=== PATIENT | female | born 1960 | race Caucasian/White ===

== ENCOUNTER → 2017-06-09 | Outpatient (CLI) | payer BC ==
--- NOTE | 2017-06-10 09:15 | MM ---
Reason for exam: screening (asymptomatic). Last mammogram was performed 1 year ago. History: Patient is postmenopausal. Family history of breast cancer in aunt. Physical Findings: A clinical breast exam by your physician is recommended on an annual basis and results should be correlated with mammographic findings. MG Screening Mammo w CAD Bilateral CC and MLO view(s) were taken. Prior study comparison: June 03, 2016, bilateral MG screening mammo w CAD. There are scattered fibroglandular densities. No significant changes when compared with prior studies. ASSESSMENT: Benign, BI-RAD 2 RECOMMENDATION: Routine screening mammogram of both breasts in 1 year.
== END ==
LOC: RADMAMWWP 12:39
PROVIDERS: ATTEND Family Medicine
DX: Z12.31 Encounter for screening mammogram for malignant neoplasm of breast (principal)

== ENCOUNTER → 2019-07-26 | Outpatient (CLI) | payer BC ==
--- NOTE | 2019-07-26 15:32 | BD ---
EXAMINATION TYPE: Axial Bone Density DATE OF EXAM: 07/26/2019 COMPARISON: NONE CLINICAL HISTORY: Z 78.0 Height: 5 FT 1 IN Weight: 149 FRAX RISK QUESTIONS: Family History (Parent hip fracture): YES RISK FACTORS HISTORY OF: Active: YES Postmenopausal woman: AGE 45 MEDICATIONS: Additional Medications: NONE Additional History: EXAM MEASUREMENTS: Bone mineral densitometry was performed using the [employer] System. Bone mineral density as measured about the Lumbar spine is: ----- L1-L4(G/cm2): 0.838 T Score Values are as follows: ----- L2: -3.0 ----- L3: -2.8 ----- L4: -3.3 ----- L1-L4: -2.8 BASELINE Bone mineral density about the R hip (g/cm2): 0.918 Bone mineral density about the L hip (g/cm2): 0.797 T Score values are as follows: -----R Neck: -0.9 -----L Neck: -1.7 -----R Total: -1.1 -----L Total: -1.7 BASELINE IMPRESSION: Osteoporosis (T Score less than -2.5) with regards to the lumbar spine. There is increased fracture risk and therapy is usually indicated based on age. Re-Screen 1-2 years. NOTE: T-SCORE=SD OF THE YOUNG ADULT MEAN.
--- NOTE | 2019-07-27 11:28 | MM ---
Reason for exam: screening (asymptomatic). Last mammogram was performed 2 years and 2 months ago. History: Patient is postmenopausal. Family history of breast cancer in aunt. Physical Findings: A clinical breast exam by your physician is recommended on an annual basis and results should be correlated with mammographic findings. MG Screening Mammo w CAD Bilateral CC, MLO, and XCCL view(s) were taken. Prior study comparison: June 09, 2017, bilateral MG screening mammo w CAD. June 10, 2016, right breast MG work up mamm w CAD RT. The breast tissue is heterogeneously dense. This may lower the sensitivity of mammography. Neodensity 3.8cm from nipple right breast outer upper quadrant. ASSESSMENT: Incomplete: need additional imaging evaluation, BI-RAD 0 RECOMMENDATION: Special view mammogram of the right breast. If lesion persists on supplemental views, image directed ultrasound is recommended. [facility] will attempt to contact patient to return for supplemental views and ultrasound if indicated.
== END ==
LOC: RADMAMWWP 12:36
PROVIDERS: ATTEND Family Medicine
DX: Z12.31 Encounter for screening mammogram for malignant neoplasm of breast (principal); M81.0 Age-related osteoporosis without current pathological fracture; Z78.0 Asymptomatic menopausal state
CPT/HCPCS: 77067; 77080

== ENCOUNTER → 2019-08-08 | Outpatient (CLI) | payer BC ==
--- NOTE | 2019-08-08 11:29 | MM ---
Reason for exam: additional evaluation requested from abnormal screening. Last mammogram was performed less than 1 month ago. History: Patient is postmenopausal and has history of other cancer at age 54. Family history of breast cancer in maternal aunt at age 50. Physical Findings: Nurse did not find any significant physical abnormalities on exam. MG Work Up Mamm w CAD RT Spot compression CC, spot compression MLO, and LM view(s) were taken of the right breast. Prior study comparison: July 26, 2019, bilateral MG screening mammo w CAD. June 09, 2017, bilateral MG screening mammo w CAD. Area of concern does not go completely away on additional views. These results were verbally communicated with the patient and result sheet given to the patient on 08/08/19. ASSESSMENT: Incomplete: need additional imaging evaluation, BI-RAD 0 RECOMMENDATION: Ultrasound of the right breast.
--- NOTE | 2019-08-08 11:30 | USB ---
Reason for exam: additional evaluation requested from abnormal screening. History: Patient is postmenopausal and has history of other cancer at age 54. Family history of breast cancer in maternal aunt at age 50. US Breast Workup Limited RT Right limited breast ultrasound including focal area of concern, retroareolar and axilla demonstrates no cystic or solid lesion greater than 0.50cm. These results were verbally communicated with the patient and result sheet given to the patient on 08/08/19. ASSESSMENT: Probably benign, BI-RAD 3 RECOMMENDATION: Follow-up diagnostic mammogram of the right breast in 6 months.
== END | disposition home or self-care (01) ==
LOC: RADMAMWWP 10:08
PROVIDERS: ATTEND Family Medicine
DX: R92.8 Other abnormal and inconclusive findings on diagnostic imaging of breast (principal)
CPT/HCPCS: 77065

== ENCOUNTER → 2020-12-03 | Outpatient (CLI) | payer BC ==
--- NOTE | 2020-12-04 13:16 | MM ---
Reason for exam: screening (asymptomatic). Last mammogram was performed 1 year and 4 months ago. History: Patient is postmenopausal and has history of other cancer at age 54. Family history of breast cancer in maternal aunt at age 50. Physical Findings: A clinical breast exam by your physician is recommended on an annual basis and results should be correlated with mammographic findings. MG Screening Mammo w CAD Bilateral CC and MLO view(s) were taken. Prior study comparison: August 08, 2019, right breast MG work up mamm w CAD RT. July 26, 2019, bilateral MG screening mammo w CAD. June 09, 2017, bilateral MG screening mammo w CAD. June 03, 2016, bilateral MG screening mammo w CAD. The breast tissue is heterogeneously dense. This may lower the sensitivity of mammography. Finding: There are typically benign vascular calcifications in the right breast. There are benign round calcifications bilaterally. There is a chronic nodularity bilaterally. There is no discrete abnormality. ASSESSMENT: Benign, BI-RAD 2 RECOMMENDATION: Routine screening mammogram of both breasts in 1 year.
== END | disposition home or self-care (01) ==
LOC: RADMAMWWP 09:53
PROVIDERS: ATTEND Family Medicine
DX: Z12.31 Encounter for screening mammogram for malignant neoplasm of breast (principal)
CPT/HCPCS: 77067

== ENCOUNTER → 2021-04-10 | Outpatient (CLI) | payer BC ==
--- NOTE | 2021-04-10 13:57 | USB ---
Reason for exam: clinical finding. History: Patient is postmenopausal and has history of other cancer at age 54. Family history of breast cancer in maternal aunt at age 50. Physical Findings: Nurse did not find any significant physical abnormalities on exam. US Breast RT Right complete breast ultrasound includes all four quadrants, the retroareolar region and axilla. Finding demonstrates a 0.5 x 0.6 x 0.4cm oval, cystic lesion at 9 o'clock, a 0.4 x 0.7 x 0.3cm oval, hypoechoic lesion at 9 o'clock, likely complex cyst or fibrocystic change, duct ectasia with debris at the posterior nipple, probably benign and a 2.0 x 1.8 x 0.6cm lymph node at the axilla. These results were verbally communicated with the patient and result sheet given to the patient on 04/10/21. ASSESSMENT: Suspicious, BI-RAD 4 RECOMMENDATION: Surgical consultation of the right breast. (for bloody nipple discharge) Called [facility]'s office with mammographic findings and has scheduled an appointment for the patient for 05/02/21 at 10:[address] Manuel. PRELIMINARY REPORT CALLED AND FAXED TO DR. MANUEL ON 04/10/21. Ultrasound of the right breast in 6 months.
== END | disposition home or self-care (01) ==
LOC: RADUSWWP 08:00
PROVIDERS: ATTEND Family Medicine
DX: N60.01 Solitary cyst of right breast (principal); N60.41 Mammary duct ectasia of right breast; Z78.0 Asymptomatic menopausal state; Z80.3 Family history of malignant neoplasm of breast

== ENCOUNTER → 2021-05-02 | Outpatient (CLI) | payer BC ==
[2021-05-02 10:23] VITALS: BP 109/57; PULSE 54; RESP 16; TEMP 98.2
--- NOTE | 2021-05-02 11:09 | P.GSHP ---
History of Present Illness H&P Date: 05/02/21 Chief Complaint: bloody nipple discharge Belinda is a 61 year old white female seen in consultation for Dr. Shay with a complaint of right breast bloody nipple discharge following a mammogram in November. The discharge stopped however she still does have some sticky muc us-like/clear discharge from that area. The bilateral mammogram in November 2020 was benign BIRADS 2. Secondary to the discharge an ultrasound was done of the right breast on . The ultrasound revealed a 0.5 x 0.6 cm cystic lesion at 9:00, a 0.4 x 0.7 cm hypoechoic lesion at 9:00 likely complex cyst, duct ectasia with to be at the posterior nipple, and a 2 x 1.8 cm lymph node in the axilla. The findings were suspicious BIRADS 4 and surgical consultation secondary to the bloody nipple discharge was recommended. The patient does not feel any lumps masses or nodules of concern in either breast. She has not had any recent history of infection of the breast. The patient approximately a year ago was hit with a baseball in the left breast and developed some ecchymosis and some discomfort which has largely resolved. She is not complaining of any pain in her breasts. She's never had anything like this in the past. She has no left nipple discharge. Caffeine: 2 cups coffee/day nicotine: none chocolate: none Family History: maternal aunt: breast cancer niece: breast cancer bilateral paternal aunt: breast cancer mother: leukemia Hormonal History: menarche: 11 , breast fed: yes, age at first : 18 menopause: 45 BCP: none hormones: none Surgical history: Rotator cuff surgery Medical history: Negative Social history: Nicotine: Negative; stopped 15 years ago; 2/PPD for 30 years Alcohol: Occasional Drugs: Negative - Constitutional Constitutional: Denies chills, Denies fever - EENT Eyes: denies blurred vision, denies pain Ears: deny: decreased hearing, tinnitus Ears, nose, mouth and throat: Denies headache, Denies sore throat - Breasts Breasts: bilateral: as per HPI - Cardiovascular Cardiovascular: Denies chest pain, Denies shortness of breath - Respiratory Respiratory: Denies cough, Denies 7 - Gastrointestinal Comment: esophogeal spasm - Genitourinary (Female) Genitourinary: Denies dysuria, Denies hematuria - Menstruation Menstruation: Reports postmenopausal - Musculoskeletal Comment: arthritis Musculoskeletal: Reports as per HPI - Integumentary Integumentary: Denies pruritus, Denies rash - Neurological Neurological: Denies numbness, Denies weakness - Psychiatric Psychiatric: Denies anxiety, Denies depression - Endocrine Endocrine: Denies fatigue, Denies weight change - Hematologic/Lymphatic Comment: none - Allergic/Immunologic Allergic/Immunologic: Reports seasonal allergies Past Medical History History of Any Multi-Drug Resistant Organisms: None Reported Smoking Status: Former smoker Medications and Allergies Allergies Allergy/AdvReac Type Severity Reaction Status Date / Time No Known Allergies Allergy Verified 08/08/19 10:42 Surgical - Exam Vital Signs Temp Pulse Resp BP Pulse Ox 98.2 F 54 L 16 109/57 98 05/02/21 10:11 05/02/21 10:11 05/02/21 10:11 05/02/21 10:11 05/02/21 10:11 BMI 28.3 - General no distress - Eyes normal ocular movement - ENT no hearing loss, no congestion - Neck no masses, trachea midline - Respiratory normal expansion, normal respiratory effort - Cardiovascular Rhythm: regular Heart Sounds: normal: S1, S2 - Abdomen Abdomen: soft - Integumentary normal turgor - Neurologic normal coordination - Musculoskeletal normal gait, normal posture - Psychiatric oriented to time, oriented to person, oriented to place, speech is normal, memory intact breast exam: BRA: 38B inspection: Bilateral grade 2 ptosis Palpation: Right breast: Multiple positional exam fibrocystic changes, with squeezing quite diligently there is small amount of shiny fluid right at the nipple central orifice not enough to do a guaiac test on Right axilla: No adenopathy of concern Left breast: Multiple positional exam fibrocystic changes no dominant masses or nodules of concern Left axilla: No adenopathy of concern Results Mammogram and ultrasound results reviewed Assessment and Plan Assessment: Impression: 1. History of bloody nipple discharge following a mammogram on the right breast, this has resolved patient has symptoms residual clear discharge minimal this cannot be well elicited on today's exam 2. Ultrasound of the right breast no specific lesions of concern question of some duct ectasia with debris at the posterior nipple 3. Bilateral mammogram 37636 benign BIRADS 2 4. family history of breast cancer Plan: 1. I've discussed with Belinda several options. The first option would be close surveillance with repeat ultrasound in 3 months. The problem is that I cannot elicit a specific duct that the discharge comes from, she is not having any bloody discharge at this time. 2. Second option would be a ductogram/after discussion she has declined this 3. Operative exploration of the duct which at this time would be non-directed as there is no specific duct that we can determine this is coming from At this time patient is going to have a repeat ultrasound in 3 months with physician exam at that time. She notes anything of concern prior she will call us sooner. CC: Dr. Conklin
== END ==
LOC: WWCWWP 09:52
PROVIDERS: ATTEND Surgery
DX: N64.52 Nipple discharge (principal); Z80.3 Family history of malignant neoplasm of breast; Z87.891 Personal history of nicotine dependence

== ENCOUNTER → 2021-06-27 | Outpatient (CLI) | payer BC ==
--- NOTE | 2021-07-01 14:26 | USB ---
Reason for exam: clinical finding. History: Patient is postmenopausal and has history of other cancer at age 54. Family history of breast cancer in maternal aunt at age 50 and breast cancer in paternal aunt. Indicated problem(s): non-bloody discharge in the right breast. Pain in the left breast. Physical Findings: Nurse Summary: Patient complains of spontaneous clear nipple discharge right breast x 7 months, left breast pain x 1 month (nurse mj). US Breast BILAT Right complete breast ultrasound includes all four quadrants, the retroareolar region and axilla. Finding demonstrates a 0.4 x 0.3 x 0.2cm cystic lesion at 9 o'clock and a 0.4 x 0.3 x 0.3cm hypoechoic, taller than wide lesion at 9 o'clock. Biopsy recommended. Left complete breast ultrasound includes all four quadrants, the retroareolar region and axilla. Finding demonstrates no cystic or solid lesion seen. These results were verbally communicated with the patient and result sheet given to the patient on 06/27/21. ASSESSMENT: Suspicious, BI-RAD 4 RECOMMENDATION: Ultrasound core biopsy of the right breast. (9 o'clock) Called office with mammographic findings and has scheduled an appointment for the patient for 07/04/21 at 12:[address] Manuel. PRELIMINARY REPORT CALLED AND FAXED TO DR. MANUEL ON 07/01/21.
== END | disposition home or self-care (01) ==
LOC: RADUSWWP 14:03
PROVIDERS: ATTEND Surgery
DX: N64.4 Mastodynia (principal)

== ENCOUNTER → 2021-07-04 | Outpatient (CLI) | payer BC ==
[2021-07-04 12:36] VITALS: BP 106/62; PULSE 60; RESP 16; TEMP 98.1
--- NOTE | 2021-07-04 13:07 | P.PN ---
Subjective Progress Note Date: 07/04/21 Principal diagnosis: abnormal ultrasound right breast Belinda is a 61 year old white female seen in consultation for Dr. Shay with a complaint of right breast bloody nipple discharge following a mammogram in November. The discharge stopped however she still does have some sticky mucus- like/clear discharge from that area. The bilateral mammogram in November 2020 was benign BIRADS 2. Secondary to the discharge an ultrasound was done of the right breast on . The ultrasound revealed a 0.5 x 0.6 cm cystic lesion at 9:00, a 0.4 x 0.7 cm hypoechoic lesion at 9:00 likely complex cyst, duct ectasia with to be at the posterior nipple, and a 2 x 1.8 cm lymph node in the axilla. The findings were suspicious BIRADS 4 and surgical consultation secondary to the bloody nipple discharge was recommended. The patient does not feel any lumps masses or nodules of concern in either breast. She has not had any recent history of infection of the breast. The patient approximately a year ago was hit with a baseball in the left breast and developed some ecchymosis and some discomfort which has largely resolved. She is not complaining of any pain in her breasts. She's never had anything like this in the past. She has no left nipple discharge. 07-04-21 Belinda had a right breast ultrasound done on 06-27-21. This showed a taller than wide lesion at 9 oclock. An ultrasund guided biopsy was recommended. The patient does not feel any lumps masses or nodules of concern in either breast. Additionally she states that the nipple discharge has decreased and is not bloody. Caffeine: 2 cups coffee/day nicotine: none chocolate: none Family History: maternal aunt: breast cancer niece: breast cancer bilateral paternal aunt: breast cancer mother: leukemia Hormonal History: menarche: 11 , breast fed: yes, age at first : 18 menopause: 45 BCP: none hormones: none Surgical history: Rotator cuff surgery Medical history: Negative Social history: Nicotine: Negative; stopped 15 years ago; 2/PPD for 30 years Alcohol: Occasional Drugs: Negative - Constitutional Constitutional: Denies chills, Denies fever - EENT Eyes: denies blurred vision, denies pain Ears: deny: decreased hearing, tinnitus Ears, nose, mouth and throat: Denies headache, Denies sore throat - Breasts Breasts: bilateral: as per HPI - Cardiovascular Cardiovascular: Denies chest pain, Denies shortness of breath - Respiratory Respiratory: Denies cough - Gastrointestinal Comment: esophogeal spasm - Genitourinary (Female) Genitourinary: Denies dysuria, Denies hematuria - Menstruation Menstruation: Reports postmenopausal - Musculoskeletal Comment: arthritis Musculoskeletal: Reports as per HPI - Integumentary Integumentary: Denies pruritus, Denies rash - Neurological Neurological: Denies numbness, Denies weakness - Psychiatric Psychiatric: Denies anxiety, Denies depression - Endocrine Endocrine: Denies fatigue, Denies weight change - Hematologic/Lymphatic Comment: none - Allergic/Immunologic Allergic/Immunologic: Reports seasonal allergies Objective - Vital Signs Vital signs: Vital Signs Temp 98.1 F 07/04/21 12:32 Pulse 60 07/04/21 12:32 Resp 16 07/04/21 12:32 BP 106/62 07/04/21 12:32 Pulse Ox 96 07/04/21 12:32 Intake & Output 07/03/21 07/04/21 07/04/21 18:59 06:59 18:59 Weight 68.039 kg - Constitutional General appearance: Present: average body habitus - EENT Eyes: Present: EOMI ENT: Present: hearing grossly normal - Neck Neck: Present: normal ROM - Respiratory Respiratory: bilateral: CTA - Cardiovascular Heart sounds: normal: S1, S2 - Integumentary Integumentary: Present: normal turgor - Musculoskeletal Musculoskeletal: Present: gait normal - Psychiatric Psychiatric: Present: A&O x's 3, appropriate affect, intact judgment & insight - Additional findings Additional findings: Breast Exam: BRA: 38B inspection: Bilateral grade 2 ptosis Palpation: Right breast: Multi-positional exam no dominant masses or nodules of concern, fibrocystic changes, no nipple discharge of concern Right axilla: No adenopathy of concern Left breast: Positional exam no dominant masses or nodules of concern, fibrocystic changes, no nipple discharge of concern Left axilla: No adenopathy of concern Assessment and Plan Assessment: Impression: 1. abnormal right breast ultrasound 2. no nipple discharge at this time Plan: 1. Ultrasound-guided core biopsy right breast 2. Follow-up after ultrasound-guided core biopsy Cc: Dr. Brandie Shay
== END | disposition home or self-care (01) ==
LOC: WWCWWP 12:18
PROVIDERS: ATTEND Surgery
DX: Z53.9 Procedure and treatment not carried out, unspecified reason (principal)

== ENCOUNTER → 2021-07-16 | Day surgery (SDC) | payer BC ==
[2021-07-16 09:55] VITALS: BP 137/78; PULSE 62; RESP 16; TEMP 98.1
--- NOTE | 2021-07-16 11:38 | USB ---
EXAMINATION TYPE: US biopsy breast VAD RT, MG diagnostic mammo RT wo CAD DATE OF EXAM: 07/16/2021 CLINICAL HISTORY: R92.8 Abnormal Mammogram. TECHNIQUE: Ultrasound guided core biopsy of right 9:00 breast. COMPARISON: 06/27/2021 FINDINGS: The procedure of ultrasound guided core biopsy was explained to the patient. Benefits, alternatives, and risks were discussed. An informed consent was then obtained. The patient was placed in supine positioning for imaging and for the procedure. The overlying skin was prepped and draped in usual sterile fashion. Lidocaine buffered with bicarbonate was used as anesthetic into the skin and subcutaneous tissue up to area of concern in the right 9:00 breast. Under ultrasound guidance, a 12-gauge vacuum assisted biopsy gun device was used to obtain 2 core samples. Following this, a biopsy clip was left in lesion. Postprocedural mammogram demonstrates appropriate clip deployment. The patient tolerated the procedure well without any immediate complication. The patient was kept in the radiology department for short stay after the procedure and then discharged home in stable condition. IMPRESSION: Successful, uncomplicated ultrasound guided core biopsy of area of concern in the right 9:00 breast, full pathology results to follow. Pathology Results: Benign RIGHT BREAST, NINE O'CLOCK POSITION, CORE BIOPSY: Benign breast tissue with fragmented fibrocystic change/benign cyst, focal chronic inflammation and focal microcalcification. Recommendation Follow up ultrasound of the right breast in 6 months. THUAN
== END ==
LOC: RADUSWWP 09:26
PROVIDERS: ATTEND Surgery
DX: N60.81 Other benign mammary dysplasias of right breast (principal)
CPT/HCPCS: 19083; 88305; 77065; A4648; J2001

== ENCOUNTER → 2021-07-31 | Outpatient (CLI) | payer BC ==
[2021-07-31 14:39] VITALS: BP 131/84; PULSE 60; RESP 16; TEMP 97.9
--- NOTE | 2021-07-31 15:21 | P.PN ---
Subjective Progress Note Date: 07/31/21 Principal diagnosis: nipple discharge/fibrocystic changes Belinda is a 61-year-old white female who underwent [place] [id number]. Pathology revealed benign breast tissue with fragment of fibrocystic/benign cyst changes. She tolerated the procedure without difficulty although it was painful. The patient was seen secondary to the fact that she has some sticky brown nipple discharge. The discharge has decreased but is still present. The ultra sound was reviewed in detail with Dr. Rabago following the core biopsy. It is felt that the area of concern was adequately sampled and does just represent fibrocystic tissue. Secondary to the fact that the nipple discharge has decreased and may have occurred secondary to trauma after the mammogram his recommendation is that we would sit tight repeat a mammogram and ultrasound of that breast in 3 months and follow conservatively. Objective - Vital Signs Vital signs: Vital Signs Temp 97.9 F 07/31/21 14:35 Pulse 60 07/31/21 14:35 Resp 16 07/31/21 14:35 BP 131/84 07/31/21 14:35 Pulse Ox 98 07/31/21 14:35 Intake & Output 07/30/21 07/31/21 07/31/21 18:59 06:59 18:59 Weight 68.039 kg - Additional findings Additional findings: Breast Exam: Right breast: Mild ecchymosis at biopsy site I was unable to express nipple discharge on her last visit. On today's examination likewise I did not express nipple discharge however the patient was able to manipulate and get a very small speck of fluid from one duct in the right breast. This was too small to even do a Hemoccult time. Assessment and Plan Assessment: Impression: Fibrocystic breast changes Intermittent right nipple discharge decreasing in intensity and frequency Plan: Patient is given a Hemocult card and she is going to take this home if she develops to discharge again she will collect it and bring the card back to us Repeat right breast mammogram and ultrasound in 3 months At this time I would not do a duct exploration as I cannot elicit discharge We have discussed attempting a ductogram and at this time the patient has declin ed repeat mammogram and ultrasound in 3 months CC: Dr. Shay
== END ==
LOC: WWCWWP 14:31
PROVIDERS: ATTEND Surgery
DX: N60.11 Diffuse cystic mastopathy of right breast (principal); N64.52 Nipple discharge

== ENCOUNTER → 2021-10-20 | Outpatient (CLI) | payer BC ==
--- NOTE | 2021-10-21 07:24 | MM ---
Reason for exam: follow-up at short interval from prior study. Last mammogram was performed 3 months ago. History: Patient is postmenopausal and has history of other cancer at age 54. Family history of breast cancer in maternal aunt at age 50 and breast cancer in paternal aunt. Benign US biopsy breast VAD RT of the right breast, July 16, 2021. Physical Findings: Nurse did not find any significant physical abnormalities on exam. MG 3D Diag Mammo W/Cad RT CC and MLO view(s) were taken of the right breast. Prior study comparison: July 16, 2021, right breast MG diagnostic mammo RT wo CAD. December 03, 2020, bilateral MG screening mammo w CAD. The breast tissue is heterogeneously dense. This may lower the sensitivity of mammography. Previous mammotome biopsy in the left breast. There is no discrete abnormality. No significant new findings when compared with previous films. These results were verbally communicated with the patient and result sheet given to the patient on 10/20/21. ASSESSMENT: Incomplete: need additional imaging evaluation, BI-RAD 0 RECOMMENDATION: Ultrasound of the right breast.
--- NOTE | 2021-10-21 07:26 | USB ---
Reason for exam: follow-up at short interval from prior study. History: Patient is postmenopausal and has history of other cancer at age 54. Family history of breast cancer in maternal aunt at age 50 and breast cancer in paternal aunt. Benign US biopsy breast VAD RT of the right breast, July 16, 2021. US Breast RT Right complete breast ultrasound includes all four quadrants, the retroareolar region and axilla. Finding demonstrates a 0.4 x 0.6 x 0.2cm oval, cystic lesion at 7 o'clock, a 0.7 x 0.4 x 0.2cm oval, cystic cluster at 9 o'clock and a 1.9 x 1.8 x 1.0cm oval lymph node at the axilla. These results were verbally communicated with the patient and result sheet given to the patient on 10/20/21. ASSESSMENT: Benign, BI-RAD 2 RECOMMENDATION: Return to routine screening mammogram schedule for both breasts. Back on schedule for November 2021. Manage patient on a clinical basis.
== END | disposition home or self-care (01) ==
LOC: RADMAMWWP 14:10
PROVIDERS: ATTEND Surgery
DX: N60.01 Solitary cyst of right breast (principal); R92.2 Inconclusive mammogram; Z78.0 Asymptomatic menopausal state; Z80.3 Family history of malignant neoplasm of breast
CPT/HCPCS: 77061; 77065

== ENCOUNTER → 2021-10-31 | Outpatient (CLI) | payer BC ==
[2021-10-31 14:04] VITALS: BP 122/77; PULSE 63; RESP 18; TEMP 97.7
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
== END ==
LOC: WWCWWP 13:17
PROVIDERS: ATTEND Surgery
DX: N60.12 Diffuse cystic mastopathy of left breast (principal); Z87.891 Personal history of nicotine dependence

== ENCOUNTER → 2022-03-19 | Outpatient (CLI) | payer BC ==
--- NOTE | 2022-03-20 11:50 | MM ---
Reason for exam: screening (asymptomatic). Last mammogram was performed 5 months ago. History: Patient is postmenopausal and has history of other cancer at age 54. Family history of breast cancer in maternal aunt at age 50 and breast cancer in paternal aunt. Benign US biopsy breast VAD RT of the right breast, July 16, 2021. Physical Findings: A clinical breast exam by your physician is recommended on an annual basis and results should be correlated with mammographic findings. MG 3D Screening Mammo W/Cad Bilateral CC and MLO view(s) were taken. Prior study comparison: December 03, 2020, bilateral MG screening mammo w CAD. July 26, 2019, bilateral MG screening mammo w CAD. There are scattered fibroglandular densities. There are benign appearing round, vascular calcifications bilaterally. Previous mammotome biopsy in the right breast. There is no discrete abnormality. ASSESSMENT: Benign, BI-RAD 2 RECOMMENDATION: Routine screening mammogram of both breasts in 1 year.
== END | disposition home or self-care (01) ==
LOC: RADMAMWWP 13:57
PROVIDERS: ATTEND Family Medicine
DX: Z12.31 Encounter for screening mammogram for malignant neoplasm of breast (principal); Z78.0 Asymptomatic menopausal state; Z80.3 Family history of malignant neoplasm of breast
CPT/HCPCS: 77063; 77067

== ENCOUNTER → 2023-03-22 | Outpatient (CLI) | payer BC ==
--- NOTE | 2023-03-23 12:09 | MM ---
Reason for Exam: Screening (asymptomatic). Last mammogram was performed 1 year(s) and 1 month(s) ago. Patient History: Menarche at age 11. First Full-Term at age 18. Postmenopausal. Patient has history of breast feeding. Other cancer, age 54. 07/16/2021, Benign Core Biopsy on the right side. Paternal aunt had breast cancer, age 54. Maternal aunt had breast cancer, age 50. Risk Values: Wendy 5 year model risk: 1.4%. NCI Lifetime model risk: 5.6%. Prior Study Comparison: 07/16/2021 Right Diagnostic Mammogram, [facility]. 10/20/2021 Right Diagnostic Mammogram, [facility]. 03/19/2022 Bilateral Screening Mammogram, [facility]. Tissue Density: There are scattered fibroglandular densities. Findings: Analyzed By CAD. Right breast biopsy clip There is no suspicious group of microcalcifications or new suspicious mass in either breast. Overall Assessment: Benign, BI-RAD 2 Management: Screening Mammogram of both breasts in [address] [facility] will attempt to contact patient to return for supplemental views and ultrasound if indicated. Patient should continue monthly self-breast exams. A clinical breast exam by your physician is recommended on an annual basis. This exam should not preclude additional follow-up of suspicious palpable abnormalities. Note on Wendy scores and lifetime risk: 1. A Wendy score greater than 3% is considered moderate risk. If this is the case, consider specialist referral to assess eligibility for a risk reducing agent. 2. If overall lifetime risk for the development of breast cancer is 20% or higher, the patient may qualify for future screening with alternating mammogram and breast MRI. Electronically signed and approved by: Regis Johnson DO
== END | disposition home or self-care (01) ==
LOC: RADMAMWWP 10:15
PROVIDERS: ATTEND Family Medicine
DX: Z12.31 Encounter for screening mammogram for malignant neoplasm of breast (principal); Z78.0 Asymptomatic menopausal state; Z80.3 Family history of malignant neoplasm of breast
CPT/HCPCS: 77063; 77067

== ENCOUNTER → 2023-04-28 | Outpatient (CLI) | payer BC ==
--- NOTE | 2023-04-28 09:30 | US ---
EXAMINATION TYPE: US abdomen complete DATE OF EXAM: 04/28/2023 COMPARISON: NONE CLINICAL INDICATION: Female, 63 years old with history of R10.13 EPIGASTRIC PAIN; Epigastric pain TECHNIQUE: Multiple sonographic images of the abdomen are obtained. FINDINGS: EXAM MEASUREMENTS: Liver Length: 16.0 cm Gallbladder Wall: 0.2 cm CBD: 0.5 cm Spleen: 8.6 cm Right Kidney: 9.7 x 4.6 x 5.3 cm Left Kidney: 9.1 x 4.4 x 4.8 cm Pancreas: Tail obscured by overlying bowel gas Liver: complex cystic structure = 4.4 x 2.7 x 4.5cm Gallbladder: multiple stones Evidence for sonographic Peterson's sign: no CBD: wnl Spleen: granuloma Right Kidney: cystic area lower pole = 3.1 x 2.9 x 3.0cm Left Kidney: no evidence of hydronephrosis Upper IVC: wnl Abd Aorta: wnl There is a complex anechoic cyst with thin septation measuring up to 4.4 cm. The intrahepatic portion of the IVC and proximal abdominal aorta are within normal limits. Cholelithiasis demonstrated. Per s onographer, negative sonographic Peterson's sign. No pericholecystic fluid or wall thickening. Common b ile duct is unremarkable. The visualized portions of the pancreas are homogenous. The tail is obscur ed by overlying bowel gas. Scattered calcified granulomas within the spleen. Kidneys are symmetric an d free of hydronephrosis. Right renal lower pole 3.1 cm simple cyst. IMPRESSION: 1. No acute process. 2. Cholelithiasis without evidence for acute cholecystitis. 3. Minimally complex anechoic hepatic cyst with thin septation. 4. Splenic calcified granulomas. 5. Right renal simple cyst.
== END | disposition home or self-care (01) ==
LOC: RADUSWWP 08:13
PROVIDERS: ATTEND Family Medicine
DX: K80.20 Calculus of gallbladder without cholecystitis without obstruction (principal); K76.89 Other specified diseases of liver; N28.1 Cyst of kidney, acquired; D73.89 Other diseases of spleen
CPT/HCPCS: 76700

== ENCOUNTER → 2023-09-16 | Outpatient (CLI) | payer BC ==
--- NOTE | 2023-09-16 12:58 | MR ---
EXAMINATION TYPE: MR liver wo/w con DATE OF EXAM: 09/16/2023 12:22 PM CLINICAL INDICATION:Female, 63 years old with history of K76.89 OTHER SPECIFIED DISEASES OF LIVER; PH H, Abdominal pain, abnormal US. COMPARISON: ultrasound abdomen 04/28/2023. TECHNIQUE: Multiplanar multi-sequence imaging was performed without contrast. Post contrast imaging was performed. Post IV contrast subtraction images were also submitted for review. IV Contrast: 7 cc Gadavist FINDINGS: LOWER CHEST: No gross irregularity. ABDOMEN Liver: No evidence for hepatic steatosis or cirrhosis. There is a complex cyst in the liver as seen o n prior ultrasound with multiple thin septations measuring 4.0 x 3.7 cm. There is additionally a smal ler cyst present in the left hepatic lobe measuring 3 mm. No abnormal postcontrast enhancement within these cysts. Gallbladder and Bile ducts: No evidence for ductal dilation, or biliary stricture or evidence of chol edocholithiasis. The gallbladder is within normal limits. Pancreas: No ductal dilation. No evidence for solid mass. Spleen: Normal for size. Adrenal glands: Unremarkable. Kidneys: No evidence for obstructive uropathy. No suspicious renal masses. Minimally complex renal cy st measuring 4.2 x 3.1 x 2.9 cm . No abnormal postcontrast enhancement. Stomach and Bowel: No evidence for bowel wall thickening or evidence for obstruction.. Peritoneum: No evidence of pneumoperitoneum or free fluid. Vasculature: No aortic aneurysm. Musculoskeletal: The osseous structures appear intact. Lymph Nodes: No gross evidence for lymphadenopathy. Abdominal wall: Unremarkable. IMPRESSION: 1. Complicated hepatic cyst septations. No abnormal post contrast enhancement. No evidence for lymph adenopathy. Consider 2. Cholelithiasis. 3. Bosniak type II; right renal cyst.
== END | disposition home or self-care (01) ==
LOC: RADMRIMAIN 11:20
PROVIDERS: ATTEND Internal Medicine Gastroenterology
DX: K76.89 Other specified diseases of liver (principal); K80.20 Calculus of gallbladder without cholecystitis without obstruction; N28.1 Cyst of kidney, acquired
CPT/HCPCS: 74183; A9585

== ENCOUNTER → 2024-04-13 | Outpatient (CLI) | payer MEDICARE, OTHER ==
--- NOTE | 2024-04-18 19:58 | MM ---
Reason for Exam: Screening (asymptomatic). Last screening mammogram was performed 12 month(s) ago. Patient History: Menarche at age 11. First Full-Term at age 18. Postmenopausal. Patient has history of breast feeding. Other cancer, age 54. 07/16/2021, Benign Core Biopsy on the right side. Paternal aunt had breast cancer, age 54. Maternal aunt had breast cancer, age 50. Risk Values: Wendy 5 year model risk: 1.4%. NCI Lifetime model risk: 5.4%. Prior Study Comparison: 10/20/2021 Right Diagnostic Mammogram, [facility]. 03/19/2022 Bilateral Screening Mammogram, [facility]. 03/22/2023 Bilateral MG 3D screening mammo w/cad, [facility]. Tissue Density: There are scattered areas of fibroglandular density. Findings: Analyzed By CAD. Microclip right breast from prior biopsy. There is no suspicious group of microcalcifications or new suspicious mass in either breast. Overall Assessment: Negative, BI-RAD 1 Management: Screening Mammogram of both breasts in 1 year. . Patient should continue monthly self-breast exams. A clinical breast exam by your physician is recommended on an annual basis. This exam should not preclude additional follow-up of suspicious palpable abnormalities. Note on Wendy scores and lifetime risk: 1. A Wendy score greater than 3% is considered moderate risk. If this is the case, consider specialist referral to assess eligibility for a risk reducing agent. 2. If overall lifetime risk for the development of breast cancer is 20% or higher, the patient may qualify for future screening with alternating mammogram and breast MRI. Electronically signed and approved by: Cynthia Rabago M.D. Radiologist
== END | disposition home or self-care (01) ==
LOC: RADMAMWWP 10:01
PROVIDERS: ATTEND Family Medicine
DX: Z12.31 Encounter for screening mammogram for malignant neoplasm of breast (principal); Z78.0 Asymptomatic menopausal state; Z80.3 Family history of malignant neoplasm of breast
CPT/HCPCS: 77063; 77067

== ENCOUNTER → 2025-05-16 | Outpatient (CLI) | payer MEDICARE, OTHER ==
--- NOTE | 2025-05-16 14:37 | MM ---
Reason for Exam: Screening (asymptomatic). Last mammogram was performed 1 year(s) and 1 month(s) ago. Patient History: Menarche at age 11. First Full-Term at age 18. Postmenopausal. Patient has history of breast feeding. Other cancer, age 54. 07/16/2021, Benign Core Biopsy on the right side. Paternal aunt had breast cancer, age 54. Maternal aunt had breast cancer, age 50. Risk Values: Wendy 5 year model risk: 1.4%. NCI Lifetime model risk: 5.2%. Prior Study Comparison: 07/26/2019 Bilateral Screening Mammogram, [facility]. 08/08/2019 Right Diagnostic Mammogram, [facility]. 12/03/2020 Bilateral Screening Mammogram, [facility]. 07/16/2021 Right Diagnostic Mammogram, [facility]. 10/20/2021 Right Diagnostic Mammogram, [facility]. 03/19/2022 Bilateral Screening Mammogram, [facility]. 03/22/2023 Bilateral MG 3D screening mammo w/cad, [facility]. 04/13/2024 Bilateral MG 3D screening mammo w/cad, [facility]. Tissue Density: There are scattered areas of fibroglandular density. Findings: Analyzed By CAD. Right breast biopsy clip. Right breast: There is no suspicious group of microcalcifications or new suspicious mass. Left breast: There is no suspicious group of microcalcifications or new suspicious mass. Overall Assessment: Benign, BI-RAD 2 Management: Screening Mammogram of both breasts in [address] [facility] will attempt to contact patient to return for supplemental views and ultrasound if indicated. Patient should continue monthly self-breast exams. A clinical breast exam by your physician is recommended on an annual basis. This exam should not preclude additional follow-up of suspicious palpable abnormalities. Note on Wendy scores and lifetime risk: 1. A Wendy score greater than 3% is considered moderate risk. If this is the case, consider specialist referral to assess eligibility for a risk reducing agent. 2. If overall lifetime risk for the development of breast cancer is 20% or higher, the patient may qualify for future screening with alternating mammogram and breast MRI. [facility], , 05/16/2025 2:34 PM. Electronically signed and approved by: Regis Johnson DO
--- NOTE | 2025-05-17 15:27 | BD ---
EXAMINATION TYPE: Axial Bone Density DATE OF EXAM: 05/16/2025 CLINICAL HISTORY: 65 years old Female. ICD-10 CODE: Z78.0 ASYMPTOMATIC MENOPAUSAL STA , Additional H istory: Height: 61 Weight: 139 FRAX RISK QUESTIONS: Family History (Parent hip fracture): yes History of Fracture in Adulthood: no Secondary Osteoporosis: no RISK FACTORS HISTORY OF: Surgery to Spine/Hip(right/left)/Wrist (right/left): no MEDICATIONS: Thyroid Medications: no Osteoporosis Medications: no EXAM MEASUREMENTS: Bone mineral densitometry was performed using the new test company System. Bone mineral density as measured about the Lumbar spine is: ----- L1-L4(G/cm2): 0.814 T Score Values are as follows: ----- L1: -2.5 ----- L2: -3.5 ----- L3: -3.2 ----- L4: -3.2 ----- L1-L4: -3.0 Z Score Values are as follows: ----- L1: -0.9 ----- L2: -1.8 ----- L3: -1.5 ----- L4: -1.5 ----- L1-L4: -1.4 Bone mineral density has: Decreased -2.9% since study of: 07-26-2019 Bone mineral density about the R hip (g/cm2): 0.807 Bone mineral density about the L hip (g/cm2): 0.762 T Score values are as follows: -----R Neck: -1.5 -----L Neck: -2.1 -----R Total: -1.6 -----L Total: -2.0 Z Score values are as follows: -----R Neck: 0.0 -----L Neck: -0.5 -----R Total: -0.3 -----L Total: -0.7 Bone mineral density has: Decreased -5.8% since study of: 07-26-2019 FRAX%s: The graph provided illustrates a 11.5% chance for a major osteoporotic fx and a 1.9% chance f or the hips probability for fx in 10 years time. IMPRESSION: Osteoporosis (T Score less than -2.5). There is increased fracture risk and therapy is usually indicated based on age. Re-Screen 1-2 years. NOTE: T-SCORE=SD OF THE YOUNG ADULT MEAN. [facility], , 05/17/2025 3:25 PM
== END | disposition home or self-care (01) ==
LOC: RADMAMWWP 14:04
PROVIDERS: ATTEND Family Medicine
DX: Z12.31 Encounter for screening mammogram for malignant neoplasm of breast (principal); M81.0 Age-related osteoporosis without current pathological fracture; R92.323 Mammographic fibroglandular density, bilateral breasts; Z80.3 Family history of malignant neoplasm of breast; Z78.0 Asymptomatic menopausal state
CPT/HCPCS: 77063; 77067; 77080